=== PATIENT | male | born 1950 | race Hispanic/Latino ===

== ENCOUNTER 2019-10-20 10:39 | Emergency (ER) | payer OTHER ==
--- NOTE | 2019-10-20 11:52 | RAD REPORT ---
EXAM DESCRIPTION: RAD - Hip Right 2 View - 10/20/2019 11:24 am CLINICAL HISTORY: PAIN COMPARISON: No comparisons FINDINGS: AP and frog-leg views of the right hip were obtained. There is no fracture or dislocation. No AVN or focal head abnormality. No acute or destructive bony p rocess seen. IMPRESSION: Negative right hip examination for acute or significant findings.
--- NOTE | 2019-10-20 11:52 | RAD REPORT ---
EXAM DESCRIPTION: RAD - Knee Right 3 View - 10/20/2019 11:27 am CLINICAL HISTORY: PAIN, fall with knee pain COMPARISON: No comparisonsNone. FINDINGS: No fracture, dislocation or periosteal reaction.No joint effusion seen. No joint space johan rowing. No foreign body or other soft tissue abnormality. IMPRESSION: Negative right knee. Clinical concerns for internal derangement or occult bony injury could be further assessed with MR im aging.
--- NOTE | 2019-10-20 12:05 | ER ---
Nurse's Notes [facility] Name: Richard Barr Age: 69 yrs Sex: Male : 1950 Arrival Date: 10/20/2019 Time: 10:43 Bed 5 Private MD: Diagnosis: Pain in right knee;Pain in right hip;Other slipping, tripping and stumbling and falls Presentation: 10/19 10:46 Chief complaint: Patient states: Fell down 3 steps at home 2-3 days ago. Reports pain ca1 from the R knee to R hip. Reports numbness R knee to R foot. Denies fever, cough and congestion. Coronavirus screen: Patient denies fever greater than 100.4F, cough, shortness of breath, or difficulty breathing. Proceed with normal triage process. Ebola Screen: Patient negative for fever greater than or equal to 101.5 degrees Fahrenheit, and additional compatible Ebola Virus Disease symptoms Patient denies exposure to infectious person. Patient denies travel to an Ebola-affected area in the 21 days before illness onset. No symptoms or risks identified at this time. Initial Sepsis Screen: Does the patient meet any 2 criteria? No. Patient's initial sepsis screen is negative. Does the patient have a suspected source of infection? No. Patient's initial sepsis screen is negative. Risk Assessment: Do you want to hurt yourself or someone else? Patient reports no desire to harm self or others. Onset of symptoms was October 20, 2019. 10:46 Method Of Arrival: Wheelchair ca1 10:46 Acuity: AVEL 4 ca1 Triage Assessment: 10:50 General: Appears in no apparent distress. comfortable, Behavior is calm, cooperative, bp appropriate for age. Pain: Complains of pain in right leg. EENT: No deficits noted. Neuro: No deficits noted. Cardiovascular: No deficits noted. Respiratory: No deficits noted. GI: No signs and/or symptoms were reported involving the gastrointestinal system. : No signs and/or symptoms were reported regarding the genitourinary system. Derm: No deficits noted. Musculoskeletal: No deficits noted. Historical: - Allergies: 10:51 No Known Allergies; ca1 - PMHx: 10:51 Hypertension; Myocardial infarction; Multiple Sclerosis; Angina; ca1 - PSHx: 10:51 Heart stents; ca1 - Immunization history:: Adult Immunizations up to date, Pneumococcal vaccine is not up to date, Flu vaccine is not up to date. - Social history:: Smoking status: Patient denies any tobacco usage or history of. Screenin:50 Abuse screen: Denies threats or abuse. Denies injuries from another. Nutritional bp screening: No deficits noted. Tuberculosis screening: No symptoms or risk factors identified. Fall Risk None identified. Assessment: 10:50 General: SEE TRIAGE NOTE. bp 12:41 Reassessment: PT D/C HOME AMBULATORY, DX MUSCULOSKELETAL PAIN. bp Vital Signs: 10:46 BP 113 / 77; Pulse 70; Resp 16 S; Temp 98.4(O); Pulse Ox 98% on R/A; Weight 63.5 kg ca1 (R); Height 5 ft. 5 in. (165.10 cm) (R); Pain 10/10; 12:41 BP 119 / 69; Pulse 75; Resp 16; Temp 98.4; Pulse Ox 94% ; bp 10:46 Body Mass Index 23.30 (63.50 kg, 165.10 cm) ca1 ED Course: 10:43 Patient arrived in ED. as 10:49 Triage completed. ca1 10:50 Patient has correct armband on for positive identification. Bed in low position. Call bp light in reach. Side rails up X2. Adult w/ patient. 10:51 Arm band placed on right wrist. ca1 10:52 Monty Guido FNP-C is PHCP. la1 10:53 Steven Jaramillo MD is Attending Physician. la1 11:00 Justino Clarke, DAVID is Primary Nurse. rv 11:00 Primary Nurse role handed off by Justino Clarke RN bp 11:00 Compa Ayala, DAVID is Primary Nurse. bp 11:25 Hip Right 2 View XRAY In Process Unspecified. EDMS 11:25 Knee Right 3 View XRAY In Process Unspecified. EDMS 12:41 No provider procedures requiring assistance completed. Patient did not have IV access bp during this emergency room visit. intact, bleeding controlled, No redness/swelling at site. Administered Medications: No medications were administered Outcome: 12:05 Discharge ordered by . la1 12:58 Discharged to home ambulatory. bp 12:58 Condition: stable 12:58 Discharge instructions given to patient, Instructed on discharge instructions, follow up and referral plans. Demonstrated understanding of instructions, follow-up care. 12:58 Patient left the ED. bp Signatures: Dispatcher [employer] EDMS Shavon Azul Lee, CONCHE OPERATOR-C CONCHE OPERATOR-Cla1 Compa Ayala, RN RN Justino Reynoso, RN RN rv Aubree Chavira RN RN ca1
--- NOTE | 2019-10-20 12:06 | EDPHYS ---
Physician Documentation [facility] Name: Richard Barr Age: 69 yrs Sex: Male : 1950 Arrival Date: 10/20/2019 Time: 10:43 Bed 5 Private MD: ED Physician Steven Jaramillo HPI: 10/19 10:59 This 69 yrs old Male presents to ER via Wheelchair with complaints of Leg Pain.la1 10:59 The patient presents with pain, that is acute. The complaints affect the right knee and la1 right hip. 11:01 Context: The problem was sustained at home, resulted from the patient falling, down la1 stairs, the patient can partially bear weight, uses a walker, uses walker normally at home due to MS. Onset: The symptoms/episode began/occurred 3 day(s) ago. Modifying factors: The symptoms are alleviated by nothing. the symptoms are aggravated by movement, weight bearing, bending knee. Associated signs and symptoms: Pertinent positives: numbness. Severity of symptoms: At their worst the symptoms were moderate. The patient has not experienced similar symptoms in the past. Historical: - Allergies: 10:51 No Known Allergies; ca1 - PMHx: 10:51 Hypertension; Myocardial infarction; Multiple Sclerosis; Angina; ca1 - PSHx: 10:51 Heart stents; ca1 - Immunization history:: Adult Immunizations up to date, Pneumococcal vaccine is not up to date, Flu vaccine is not up to date. - Social history:: Smoking status: Patient denies any tobacco usage or history of. ROS: 11:01 Constitutional: Negative for fever, chills, and weight loss, Neck: Negative for injury, la1 pain, and swelling, Cardiovascular: Negative for chest pain, palpitations, and edema, Respiratory: Negative for shortness of breath, cough, wheezing, and pleuritic chest pain, Abdomen/GI: Negative for abdominal pain, nausea, vomiting, diarrhea, and constipation, Back: Negative for injury and pain, Skin: Negative for injury, rash, and discoloration. 11:01 MS/extremity: Positive for pain, paresthesias. Exam: 11:02 Constitutional: This is a well developed, well nourished patient who is awake, alert, la1 and in no acute distress. Head/Face: Normocephalic, atraumatic. Neck: no vertebral point tenderness. Chest/axilla: Normal chest wall appearance and motion. Cardiovascular: Regular rate and rhythm with a normal S1 and S2. Respiratory: Lungs have equal breath sounds bilaterally, clear to auscultation Back: No spinal tenderness. 11:02 Musculoskeletal/extremity: ROM: pain with active and passive ROM of right hip and right knee, distal pulses 2+, pt with decent strength of dorsi and plantar flexion, no foot drop, reports mild numbness to right lateral aspect of right telles. , Calves: are non-tender. Vital Signs: 10:46 BP 113 / 77; Pulse 70; Resp 16 S; Temp 98.4(O); Pulse Ox 98% on R/A; Weight 63.5 kg ca1 (R); Height 5 ft. 5 in. (165.10 cm) (R); Pain 10/10; 12:41 BP 119 / 69; Pulse 75; Resp 16; Temp 98.4; Pulse Ox 94% ; bp 10:46 Body Mass Index 23.30 (63.50 kg, 165.10 cm) ca1 MDM: 10:52 Patient medically screened. kb 12:03 Data reviewed: vital signs, nurses notes, radiologic studies. Test interpretation: by la1 ED physician or midlevel provider: plain radiologic studies. Counseling: I had a detailed discussion with the patient and/or guardian regarding: the historical points, exam findings, and any diagnostic results supporting the discharge/admit diagnosis, radiology results, the need for outpatient follow up, a orthopedic surgeon, to return to the emergency department if symptoms worsen or persist or if there are any questions or concerns that arise at home. ED course: X rays without acute findings, pt has walker at home, reports mild paresthesias but has not weakness, will have FU outpatient with ortho, strict return precautions given.. 10/19 10:59 Order name: Hip Right 2 View XRAY; Complete Time: 11:56 la1 10/19 10:59 Order name: Knee Right 3 View XRAY; Complete Time: 11:56 la1 Administered Medications: No medications were administered Disposition: 13:26 Co-signature as Attending Physician, Steven Jaramillo MD I agree with the assessment and kdr plan of care. Disposition: 10/20/19 12:05 Discharged to Home. Impression: Pain in right knee, Pain in right hip, Other slipping, tripping and stumbling and falls. - Condition is Stable. - Discharge Instructions: Fall Prevention in the Home, Musculoskeletal Pain, Knee Pain, Hip Pain. - Medication Reconciliation Form, Thank You Letter form. - Follow up: Private Physician; When: 2 - 3 days; Reason: Recheck today's complaints, Re-evaluation by your physician. - Problem is new. - Symptoms are unchanged. Signatures: Dispatcher [employer] EDMS Corrine Tyler, STAFF SCIENTIST-C STAFF SCIENTIST-Ckb Steven Jaramillo MD MD [facility] Monty Guido, STAFF SCIENTIST-C STAFF SCIENTIST-Cla1 Compa Ayala, RN RN bp Aubree Chavira RN RN ca1 Corrections: (The following items were deleted from the chart) 12:58 12:05 10/20/2019 12:05 Discharged to Home. Impression: Pain in right knee; Pain in bp right hip; Other slipping, tripping and stumbling and falls. Condition is Stable. Forms are Medication Reconciliation Form, Thank You Letter, Antibiotic Education, Prescription Opioid Use. Follow up: Private Physician; When: 2 - 3 days; Reason: Recheck today's complaints, Re-evaluation by your physician. Problem is new. Symptoms are unchanged. la1
[2019-10-20 13:04] VITALS: TEMP 98.4
[2019-10-20 13:05] VITALS: BP 119/69; O2SAT 94
== END 2019-10-20 12:58 | disposition home or self-care (01) ==
LOC: ER 10:39
DX: K04.7 Periapical abscess without sinus (principal)
CPT/HCPCS: 99283